=== PATIENT | male | born 1950 | race Caucasian/White ===

== ENCOUNTER 2025-06-22 20:46 | Emergency (ER) | payer MEDICARE, OTHER ==
[~2025-06-22] VITALS: Ht 172.7 cm; Wt 100.6 kg
[2025-06-22 21:27] LABS: LEUKOCYTE ESTERASE ,URINE NEGATIVE (Neg); NITRITES, URINE NEGATIVE (Neg); OCCULT BLOOD,URINE LARGE (Neg)
[2025-06-22 21:29] LABS: MEAN PLATELET VOLUME 6.5 FL (7.4-10.4); RED CELL DISTRIBUTION WIDTH 14.6 % (11.5-14.5)
[2025-06-22 21:33] LABS: UA COLLECTION TYPE NON-SPECIFIED
[2025-06-22 21:34] LABS: SQUAMOUS EPITHELIAL CELL,UR FEW /LPF (FEW)
[2025-06-22 21:54] LABS: CREATININE 1.36 MG/DL (0.60-1.10); TOTAL CARBON DIOXIDE 26.7 MMOL/L (24-32); eCRCL 46 ML/MIN; eGFR 51 ML/MIN
--- NOTE | 2025-06-22 23:04 | RADIOLOGY REPORT ---
EXAM: CT CT ABDOMEN PELVIS History: Flank pain with hemturia Comparison Study: None TECHNIQUE: Multidetector spiral CT of the abdomen was performed from lung bases to pubic symphysis. Imaging was performed without IV contrast. Axial, coronal and sagittal multiplanar reformats were obtained from the axial data set by the technologist. Radiation Dose : 1. Abdomen/Pelvis: CTDIvol 33.04 mGy, DLP 1676.42 mGy*cm. FINDINGS: Evaluation of solid organs is limited due to lack of intravenous contrast use. Lung Bases: No acute or significant lung base finding. Normal heart size. No pleural or pericardial effusion. Liver: The liver is normal in size. No focal lesions. Gallbladder and Biliary Tree: Unremarkable Spleen: Unremarkable Pancreas: The pancreas is grossly normal in appearance. 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 Obstructing proximal left ureteric calculus measuring 6 mm resulting in mild hydronephrosis. Few additional nonobstructing left lower pole renal calculi measuring up to 5 mm. Bladder: Tiny bladder stone in the vicinity of the right UVJ measuring 4 mm Bowel: The stomach is grossly normal in appearance. Small bowel and colon are normal in caliber and distribution. The appendix is not visualized; however, no secondary findings of acute appendicitis identified. Ascites: Absent Lymphadenopathy: No mesenteric, retroperitoneal or periportal lymphadenopathy. Abdominal Wall and Mesentery: Unremarkable. Vasculature: The visualized abdominal aorta is normal in size and caliber. Evaluation of abdominal and pelvic vessels is limited due to lack of intravenous contrast. Pelvic Organs: Unremarkable Musculoskeletal: No aggressive focal bony lesions, acute fractures or dislocation. IMPRESSION: Obstructing proximal left ureteric calculus measuring 6 mm resulting in mild hydronephrosis. Solitary left kidney. Radiation optimization: All CT scans at this facility use at least one of these dose optimization techniques: automated exposure control mA and/or kV adjustment per patient size (includes targeted exams where dose is matched to clinical indication) or iterative reconstruction.
--- NOTE | 2025-06-22 23:20 | Physician Documentation ---
History of Present Illness ~ Chief Complaint: Flank Pain Stated Complaint: KIDNEY PAIN Time Seen by MD: 23:13 Mode of Arrival: POV HPI Patient presents to the emergency room with flank pain onset of symptoms 5:00 p.m.. He states it feels like a kidney stone. No fevers. He has had nothing for the pain. Medication Reconciliation Allergies: Coded Allergies: No Known Allergies (Unverified , 11/22/08) Scheduled Cephalexin*Monohydrate* (Keflex*), 1 CAP PO Q12H Ondansetron 8mg ODT (Ondansetron Odt), 1 TAB PO Q6H Scheduled PRN Hydrocodone Bit/Acetaminophen 5/325 MG ([place] 5/325 MG), 1-2 TAB PO Q4-6 hours PRN for pain Review of Systems ROS All review of all review of systems negative except as per HPI Physical Exam Vital Signs: Temperature: 98.7, Source: Oral, Heart Rate: 85, Respiratory Rate: 16, BP: 147/91, Pulse Oximetry: 97, Weight: 100.600 Oxygen Flow Rate: 0 Physical Exam General: Patient is awake, alert, oriented x4 in moderate distress Head: Normocephalic and atraumatic. Eyes: Conjunctival normal. EOMI. PERRL. ENT: Mucous membranes moist. Neck: Supple, trachea is midline. Chest: Clear to auscultation bilaterally without rales, rhonchi, or wheezes. There is no accessory muscle use or retractions. Cardiac: Tachycardic and regular without murmurs, gallops, or rubs. Abd: Soft, nondistended, nontender, with normoactive bowel sounds. No guarding, rebound, or rigidity. Extremities: Normal strength. Normal range of motion. No deformities or edema. Back: Left-sided CVA tenderness Progress Results/Orders Results/Orders Orders - RODRIGUEZ US MD Cult Urine + [place] [address] (06/22/25 21:36) Completed Orders - RODRIGUEZ US MD Cbc/Diff (06/22/25 21:03) Lipase (06/22/25 21:03) CMP (06/22/25 21:03) Ua W/Microscopic, Cult If Ind (06/22/25 21:02) Ketorolac Trometh 15mg/Ml Vial (Toradol (06/22/25 23:20) Ondansetron Inj. (Zofran 4mg/2ml Vial) (06/22/25 23:20) Morphine 4mg/Ml Inj. (Morphine Inj.) (06/22/25 23:20) Acetaminophen 1,000mg/100ml Iv (Ofirmev (06/22/25 23:20) Ceftriaxone/W4w-Gmevnvrn 1gm (Rocephin 1 (06/22/25 23:20) Hydrocodone/Apap 5/325mg Tab ([place] 5/32 (06/23/25 02:00) Vital Signs 06/22/25 06/22/25 06/23/25 06/23/25 20:57 22:42 02:28 02:29 Temp 98.7 98.3 Pulse 85 79 Resp 16 15 17 B/P (MAP) 147/91 138/87 (104) Pulse Ox 97 99 O2 Flow Rate 0 Laboratory Tests Test 06/22/25 21:02 06/22/25 21:19 Urine Specimen Description Non-specified Urine Color Brown Urine Clarity Cloudy Urine pH 6.0 Urine Specific [place] 1.015 Urine Protein 30 H Urine Glucose (UA) Negative Urine Ketones Trace H Urine Occult Blood Large H Urine Nitrite Negative Urine Bilirubin Negative Urine Urobilinogen 0.2 Urine Leukocyte Esterase Negative Urine RBC Tntc Urine WBC 10-20 H Urine Squamous Epithelial Cells Few Urine Bacteria None seen Urine Culture Indicated Indicated Volume Urine Centrifuged 10 ml Urine Comment White Blood Count 9.2 Red Blood Count 5.18 Hemoglobin 15.6 Hematocrit 46.6 Mean Corpuscular Volume 89.8 Mean Corpuscular Hemoglobin 30.1 Mean Corpuscular Hemoglobin Concent 33.5 Red Cell Distribution Width 14.6 H Platelet Count 201 Mean Platelet Volume 6.5 L Neutrophils (%) (Auto) 86.8 H Lymphocytes (%) (Auto) 6.4 L Monocytes (%) (Auto) 6.0 Eosinophils (%) (Auto) 0.2 Basophils (%) (Auto) 0.6 Neutrophils # (Auto) 8.0 H Lymphocytes # (Auto) 0.6 L Monocytes # (Auto) 0.6 Eosinophils # (Auto) 0.0 Basophils # (Auto) 0.1 CBC Comment Sodium Level 143 Potassium Level 4.5 Chloride Level 108 H Carbon Dioxide Level 26.7 Anion Gap 8 Blood Urea Nitrogen 19 H Creatinine 1.36 H Estimated GFR/1.73 m2 51 BUN/Creatinine Ratio 14.0 Glucose Level 125 H Calcium Level 9.4 Total Bilirubin 0.7 Aspartate Amino Transf (AST/SGOT) 21 Alanine Aminotransferase (ALT/SGPT) 23 Alkaline Phosphatase 91 Total Protein 7.9 Albumin 4.2 Globulin 3.7 Albumin/Globulin Ratio 1.1 Lipase 30 Chemistry Comments Microbiology Date/Time Source Procedure Growth Status 06/22/25 21:36 Urine Nonspecified Urine Culture - Preliminary NO GROWTH AFTER 1 DAY Resulted Medical Decision Making Additional information obtaine: N/A Findings Patient presented to the emergency room with flank pain that has per HPI. Differentials include but are not limited to kidney stone, pyelonephritis, aortic pathology, musculoskeletal pain therefore emergent labs and imaging indicated. CT scans positive for a large 6 mm kidney stone. Patient's pain that has controlled after pain medication. Some white blood cells noted in the urine which may be reactive and related to his kidney stone however given risks versus benefits antibiotics initiated. No evidence of kidney injury. We will refer patient to Urology with ER precautions regarding uncontrolled pain despite pain medication or fevers. Patient feels well enough to go. Diff Dx GI Bleed:Consideration: Include: AE fistula, Angiodysplasia, Bleeding diathesis, Blood loss anemia, Carcinoma, Diverticulosis, Diverticulitis, Esophageal varicies, Esophagitis, Gastritis, Gastroenteritis, Inflammatory BD, Karolina-Menard syndrome, Meckel's diverticulum, PUD, Other Diff Dx Pain:Considerations: Include: AAA, Angina/ME, Aortic dissection, Appendicitis, Bowel obstruction, Cholangitis, Cholecystitis, Cholelithasis, Constipation, Diverticular disease, Esophageal rupture, Esophagitis, Gastritis, Gastroenteritis, GI hemorrhage, Hepatitis, Hernia, Inflammatory BD, Ischemic bowel, Mass, Pancreatitis, Porphyria, PUD, Testicular torsion, Trauma, intraabdominal, Urinary obstruction, Urinary tract infection, Urolithiasis, Other Diff Dx N/V/D:Considerations: Include: Appendicitis, Bowel obstruction, Dehydration, DKA, Diarrhea - bacterial, Diarrhea - parasitic, Diarrhea - viral, Diverticulitis, Diverticulosis, Drug toxicity, Electrolyte imbalance, Food poisoning, Gastroenteritis, GE reflux, GI bleed, Hepatitis, Hernia, Hypovolemia, Hypotension, Inflammatory BD, Impaction, Malnutrition, Pancreatitis, PUD, Renal failure, Urinary obstruction, UTI, Urolithiasis, Other Diff Dx Rectal:Considerations: Include: Fissure, Fistula, Foreign body, Impaction, Perirectal abscess, Prostatitis, Rectal prolapse, Subcutaneous abscess, Thrombosed hemorrhoid, Ulcer, UTI, Other Departure Disposition: 01 HOME / SELF CARE / HOMELESS Impression: Primary Impression: Calculus of kidney Condition: Improved Discharge Instructions: Kidney Stones Additional Instructions: Call urology in the morning to arrange for follow up. Return immediately for uncontrolled pain or fevers. Referrals: NO PRIMARY CARE PROVIDER (PCP) BIA CASTELLON MD Prescriptions Ondansetron 8mg ODT (Ondansetron Odt) 8 Mg Tab.rapdis 1 TAB PO Q6H for nausea/vomiting for 3 Days, #12 TAB 0 Refills Prov: RODRIGUEZ US MD 06/23/25 Hydrocodone Bit/Acetaminophen 5/325 MG ([place] 5/325 MG) 5 Mg/325 Mg Tablet 1-2 TAB PO Q4-6 hours PRN for pain, #15 TAB Prov: RODRIGUEZ US MD 06/23/25 Cephalexin*Monohydrate* (Keflex*) 500 Mg Capsule 1 CAP PO Q12H for 10 Days, #20 CAP Prov: RODRIGUEZ US MD 06/23/25 Education Educated: Patient Educated regarding: diagnosis, treatment, need for follow up Signature Scribe Signature: No scribe Attestation: The note accurately reflects work and decisions made by me.Rodriguez Us MD 06/23/25 01:56 RODRIGUEZ US MD Jun 22, 2025 23:20
[2025-06-23] MEDS: ondansetron/PF 4mg/2ml inj IV ONE (00:22)
[2025-06-23] MEDS: acetaminophen 1,000mg/100ml IV 100 ML IV ONE (00:23)
[2025-06-23] MEDS: morphine 4 MG/ML inj SYRINge IV ONE (00:23)
[2025-06-23] MEDS: ketorolac trometh 15mg/ml vial 15 MG/ML ML IV ONE (00:23)
[2025-06-23] MEDS: CefTRIAXone/D5W-Rocephin 1gm 50 ML IV ONE (00:48)
[2025-06-23] MEDS ORDERED: HYDR-3965 PO (01:54)
[2025-06-23] MEDS ORDERED: CEPH-585 PO (01:54)
[2025-06-23] MEDS ORDERED: ONDA-245 PO (01:54)
[2025-06-23] MEDS: HYDROcodone/acetaminophen 5mg/325mg tablet PO ONE (02:28)
[2025-06-23 02:29] VITALS: BP 138/87; PULSE 79; RESP 17; TEMP 98.3; O2SAT 99
[2025-06-25] MEDS ORDERED: CEPH500C2 PO (16:52)
[2025-06-26] MEDS ORDERED: LACT1CAP26 PO (14:35)
[2025-06-26] MEDS ORDERED: CEPH-585 PO (14:35)
== END 2025-06-23 03:34 | disposition home or self-care (01) ==
LOC: ER 20:47
DX: N20.0 Calculus of kidney (principal); Z79.899 Other long term (current) drug therapy
CPT/HCPCS: 36415; 74176; 80053; 81001; 83690; 85025; 87088; 96365; 96375; 99285; J0131; J0696; J1885; J2270; J2405